=== PATIENT | female | born 1970 | race Caucasian/White ===

== ENCOUNTER 2018-06-16 10:45 | Emergency (ER) | payer OTHER ==
[~2018-06-16] VITALS: Ht 157.5 cm; Wt 86.2 kg
[2018-06-16 10:49] VITALS: BP_SYST 188
[2018-06-16] MEDS ORDERED: ALPRAZolam 0.25 MG TABLET PO ONE (11:45)
[2018-06-16 12:13] VITALS: BP_SYST 125
== END 2018-06-16 12:13 | disposition home or self-care (01) ==
LOC: SED 10:45
DX: F41.9 Anxiety disorder, unspecified (principal); E11.9 Type 2 diabetes mellitus without complications; I10 Essential (primary) hypertension; Z98.84 Bariatric surgery status
CPT/HCPCS: 81002; 82962; 93005; 99283

== ENCOUNTER 2023-09-16 09:23 | Emergency (ER) | payer BC, OTHER ==
[~2023-09-16] VITALS: Ht 157.5 cm; Wt 81.6 kg
[2023-09-16 09:53] VITALS: BP_SYST 196; PULSE 74; RESP 18; TEMP 97.5; O2SAT 99
[2023-09-16 10:29] LABS: BASOPHILS % (AUTO) 0.4 % (0.0-2.0); EOSINOPHILS # (AUTO) 0.2 K/uL (0.0-0.4); EOSINOPHILS % (AUTO) 3.1 % (0.0-4.0); HEMOGLOBIN 10.4 g/dL (12.0-16.0); LYMPHOCYTES # (AUTO) 1.1 K/uL (1.0-5.5); LYMPHOCYTES % (AUTO) 18.3 % (20.5-51.5); MEAN CORPUSCULAR HEMOGLOBIN 25 pg (27-31); MEAN CORPUSCULAR HGB CONC 32 % (32-36); MEAN CORPUSCULAR VOLUME 78 fL (79.0-98.0); MONOCYTES # (AUTO) 0.5 K/uL (0.0-1.0); MONOCYTES % (AUTO) 8.9 % (1.7-9.3); NEUTROPHILS # (AUTO) 4.3 K/uL (1.8-7.7); NEUTROPHILS % (AUTO) 69.3 % (40.0-70.0); PLATELET COUNT (AUTO) 241 K/uL (130-430); RED BLOOD CELL COUNT(AUTO) 4.08 MIL/uL (4.2-6.2); RED CELL DISTRIBUTION WIDTH 17.1 % (9.0-15.0); WHITE BLOOD COUNT (AUTO) 6.1 K/uL (4.8-10.8)
[2023-09-16 10:39] LABS: ERYTHROCYTE SEDIMENTATION RATE 3 MM/HR (0-20)
[2023-09-16] MEDS: KETOROLAC TROMETHAMINE 60 MG/2 ML VIAL IM ONE (10:57)
[2023-09-16] MEDS: HYDROcodone/ACETAMIN 10-325 MG TAB PO ONE (10:58)
[2023-09-16 11:08] LABS: CALCIUM 8.8 mg/dL (8.4-11.0); CREATININE 0.78 mg/dL (0.55-1.30); POTASSIUM 5.6 mmol/L (3.5-5.1)
[2023-09-16] MEDS ORDERED: IBUP-1969 PO (13:38)
[2023-09-16] MEDS ORDERED: HYDR-3917 PO (13:38)
[2023-09-16 14:31] VITALS: BP_SYST 172; PULSE 76; RESP 18; TEMP 97.5; O2SAT 99
== END 2023-09-16 14:25 | disposition home or self-care (01) ==
LOC: SED 09:23
DX: M54.12 Radiculopathy, cervical region (principal); I10 Essential (primary) hypertension; E11.9 Type 2 diabetes mellitus without complications
CPT/HCPCS: 99285; 72125; 80048; 85025; 85651; 36415; 96372; 82397; J1885